=== PATIENT | male | born 1985 | race Caucasian/White ===

== ENCOUNTER 2019-04-25 20:28 | Emergency (ER) | payer OTHER ==
[2019-04-25 20:40] VITALS: BP 152/85; PULSE 81; RESP 18; TEMP 98.3
[2019-04-25] MEDS ORDERED: DIPH,PERTUS(ACELL)TETVAC-LF 0.5 ML VIAL IM ONE (20:43)
[2019-04-25] MEDS ORDERED: RABIES IMMUNE GLOB 300 UNIT/ML 5 ML VIAL IM ONE (20:46)
[2019-04-25] MEDS ORDERED: RABIES VACCINE (PCEC) 2.5 UNIT KIT IM ONE (20:47)
--- NOTE | 2019-04-25 22:26 | ED ---
Animal Bite HPI - General Chief Complaint: Animal Bite Stated Complaint: dog bite, [facility] Time Seen by Provider: 04/25/19 20:41 Source: patient Mode of arrival: ambulatory Limitations: no limitations - History of Present Illness Initial Comments: Patient is a 33-year-old male presents emergency Department with a dog bite. Patient reports that he received a dog bite on the lateral aspect of his right forearm earlier today. Patient reports too small puncture wounds. Patient denies erythema or edema at the site of incident. Patient is not aware of his tetanus status. Patient states that dog is not vaccinated for rabies. Patient patient denies any pain, numbness or tingling. Patient denies muscle weakness in the right upper extremity. Patient denies taking medication to alleviate the symptoms. - Related Data Previous Rx's Medication Instructions Recorded Amoxicillin/Potassium Clav 1 tab PO Q12HR #20 tab 04/25/19 [Augmentin 875-125 Tablet] Allergies Allergy/AdvReac Type Severity Reaction Status Date / Time No Known Allergies Allergy Verified 04/25/19 20:40 Review of Systems ROS Statement: Those systems with pertinent positive or pertinent negative responses have been documented in the HPI. ROS Other: All systems not noted in ROS Statement are negative. Past Medical History Additional Past Medical History / Comment(s): cellulitis History of Any Multi-Drug Resistant Organisms: None Reported Past Surgical History: No Surgical Hx Reported Past Psychological History: No Psychological Hx Reported Smoking Status: Never smoker Past Alcohol Use History: Occasional Past Drug Use History: None Reported General Exam - General Exam Comments Initial Comments: General: Well-developed well-nourished distress HEENT: Normocephalic/atraumatic, PERLL, pharynx erythema, swallowing well, EAC no erythema, no exudates, TM clear, no cervical lymph nodes Neck: Supple, nontender, trachea midline Chest/Lungs: Normal respirations, no signs of respiratory distress clear to auscultation bilaterally no wheezes, rales, rhonchi Cardiac: Regular rate and rhythm, normal S1-S2, no murmurs rubs or gallops Abdomen/GI: Soft nontender, bowel sounds equal or quadrant x4, no guarding, no rebound no CVA tenderness Musculoskeletal: Nontender, full range of motion, no edema, strength equal bilaterally, 2 small puncture wounds on the lateral aspect of the right forearm. No erythema or edema noted. Skin: Warmth, no rashes or lesions, no cyanosis or diaphoresis Neurologic: AAO x 3, CN 2-12 intact, Psychiatric: Mood and affect normal, judgment normal Limitations: no limitations Course Vital Signs 04/25/19 20:37 Temperature 98.3 F Pulse Rate 81 Respiratory 18 Rate Blood Pressure 152/85 O2 Sat by Pulse 96 Oximetry Medical Decision Making - Medical Decision Making Patient is a 33-year-old male presents emergency Department with a dog bite. Tetanus prophylaxis was administered. Patient was given rabies vaccination advised to return on day 3, 7 and 14. Patient was given rabies immunoglobulin. Patient was discharged with a 10 day course of Augmentin. At this time the puncture wounds are less than 3 mm and no laceration is necessary. Strict return parameters were thoroughly discussed with patient who is understanding and agreeable. Case discussed with physician. Disposition Clinical Impression: Dog bite Disposition: HOME SELF-CARE Condition: Stable Instructions (If sedation given, give patient instructions): Animal Bite (ED) Additional Instructions: Please take prescribed medication as directed. Please follow-up with primary care. Please return for complete rabies vaccination course. Please return to emergency department if symptoms worsen. Prescriptions: Amoxicillin/Potassium Clav [Augmentin 875-125 Tablet] 1 tab PO Q12HR #20 tab Is patient prescribed a controlled substance at d/c from ED?: No Referrals: None,Stated [Primary Care Provider] - 1-2 days Time of Disposition: 22:26
== END 2019-04-25 22:40 | disposition home or self-care (01) ==
LOC: EC 20:28
DX: S51.851A Open bite of right forearm, initial encounter (principal); Z23 Encounter for immunization; Z20.3 Contact with and (suspected) exposure to rabies; W54.0XXA Bitten by dog, initial encounter; Y92.69 Other specified industrial and construction area as the place of occurrence of the external cause; Y99.0 Civilian activity done for income or pay
CPT/HCPCS: 90375; 90471; 90472; 90675; 90715; 96372; 99283